=== PATIENT | female | born 1985 | race Caucasian/White ===

== ENCOUNTER 2016-12-29 23:40 | Emergency (ER) | payer OTHER ==
[2016-12-30 00:17] VITALS: BP 110/78; PULSE 75; TEMP 98.2; BMI 30.2
[2016-12-30] MEDS ORDERED: SODIUM CHLORIDE 1,000 ML IV STA (00:39)
[2016-12-30 01:18] LABS: BASOPHIL 0.6 % (0-2.0); EOSINOPHIL 1.6 % (0-4.5); MCH 28.2 pg (25.7-33.7); MCHC 32.7 g/dl (32.0-36.0); MEAN CELL VOLUME 86.2 fl (80-96); NEUTROPHILS 48.7 % (42.8-82.8); PLATELET COUNT 231 K/MM3 (134-434); RDW 12.1 % (11.6-15.6); WHITE BLOOD COUNT 7.4 K/mm3 (4.0-10.0)
[2016-12-30 01:27] LABS: URINE APPEARANCE CLEAR; URINE BILIRUBIN NEGATIVE (NEGATIVE); URINE BLOOD NEGATIVE (NEGATIVE); URINE COLOR LTYELLOW; URINE GLUCOSE (UA) NEGATIVE (NEGATIVE); URINE KETONE NEGATIVE (NEGATIVE); URINE NITRITE NEGATIVE (NEGATIVE); URINE PROTEIN NEGATIVE (NEGATIVE); URINE UROBILINOGEN NEGATIVE E.U./dl (0.2-1.0)
[2016-12-30 01:32] LABS: URINE LEUK ESTERASE TRACE (NEGATIVE)
[2016-12-30 01:44] LABS: ALBUMIN 3.6 g/dl (3.4-5.0); ANION GAP 10 (8-16); CALCIUM 8.9 mg/dL (8.5-10.1); CO2 25 mmol/L (21-32); GLUCOSE,RANDOM 86 mg/dL (74-106)
[2016-12-30 01:47] LABS: ALK PHOS 105 U/L (45-117); BILIRUBIN,TOTAL 0.4 mg/dL (0.2-1.0); CREATININE 0.5 mg/dL (0.55-1.02); SGOT/AST 17 U/L (15-37); SGPT/ALT 24 U/L (12-78); TOT PROT 6.6 g/dl (6.4-8.2)
[2016-12-30 01:50] LABS: URINE MUCUS RARE; URINE RBC 2 /hpf (0-3); URINE WBC 1 /hpf (3-5)
--- NOTE | 2016-12-30 02:08 | PDOC ---
History of Present Illness - General Chief Complaint: Pain Stated Complaint: PAIN, ACUTE Time Seen by Provider: 12/30/16 00:19 History Source: Patient, Family Exam Limitations: Language Barrier - History of Present Illness Travel History: No Initial Comments: 12/30/16 02:03 31yo Female patient presents to ED c/o abd pain x 5 days. Patient reports symptoms as sudden onset. She denies n/v/d, fever, dysuria, hematuria, no vaginal bleeding change in appetite, or any other complaints at this time. Timing/Duration: reports: constant Quality: reports: moderate Abdominal Pain Onset Location: reports: RLQ, LLQ Pain Radiation: reports: no radiation Activities at Onset: reports: none Treatment Prior to Arrive: worse with: analgesics, antacids, cold pack, heat, laxative, enema, other Aggravating Factors: worse with: None, Defecation, Eating, Emotional upset, Exertion, [place], Movement, Voiding, Change in position Past History - Travel Traveled outside of the country in the last 30 days: No Close contact w/someone who was outside of country & ill: No - Past Medical History Allergies/Adverse Reactions: Allergies Allergy/AdvReac Type Severity Reaction Status Date / Time No Known Allergies Allergy Verified 12/30/16 00:17 Home Medications: Ambulatory Orders Rifampin [Rifadin] 300 mg PO DAILY 04/03/16 Ranitidine HCl [Zantac] 300 mg PO DAILY #30 tablet 12/30/16 Other medical history: Denies - Immunization History Immunization Up to Date: No - Psycho/Social/Smoking Cessation Hx Anxiety: No Suicidal Ideation: No Smoking History: Never smoked Have you smoked in the past 12 months: No Number of Cigarettes Smoked Daily: 0 Information on smoking cessation initiated: No Hx Alcohol Use: No Drug/Substance Use Hx: No Substance Use Type: None Review of Systems - Review of Systems Able to Perform ROS?: Yes Is the patient limited Algerian proficient: No Constitutional: No: Chills, Fever Respiratory: No: Cough, Shortness of Breath, Stridor, Wheezing Cardiac (ROS): No: Chest Pain, Palpitations, Syncope, Chest Tightness ABD/GI: Yes: Abdominal cramping. No: Abdominal Distended, Blood Streaked Bowels , Constipated, Diarrhea, Nausea, Poor Appetite, Poor Fluid Intake, Rectal Bleeding, Vomiting : No: Burning, Dysuria, Discharge, Frequency, Flank Pain, Hematuria, Incontinence, Pain Musculoskeletal: No: Back Pain All Other Systems: Reviewed and Negative *Physical Exam - Vital Signs Last Vital Signs Temp Pulse Resp BP Pulse Ox 98.2 F 75 18 110/78 99 12/30/16 00:13 12/30/16 00:13 12/30/16 00:13 12/30/16 00:13 12/30/16 00:13 - Physical Exam General Appearance: Yes: Nourished, Appropriately Dressed. No: Apparent Distress, Mild Distress, Moderate Distress, Severe Distress Neck: positive: Trachea midline, Supple. negative: Lymphadenopathy (R), Lymphadenopathy (L) Respiratory/Chest: positive: Lungs Clear, Normal Breath Sounds. negative: Respiratory Distress, Accessory Muscle Use, Labored Respiration, Rapid RR, Crackles, Rales, Rhonchi, Stridor, Wheezing Cardiovascular: positive: Regular Rhythm, Regular Rate Gastrointestinal/Abdominal: positive: Normal Bowel Sounds, Tender, Soft, Distended, Tenderness (Lower abdomen). negative: Guarding, Rebound Musculoskeletal: positive: Normal Inspection. negative: CVA Tenderness Extremity: positive: Normal Capillary Refill, Normal Inspection, Normal Range of Motion. negative: Pedal Edema, Swelling, Calf Tenderness, Erythema, Inflammation Integumentary: positive: Normal Color, Dry, Warm Neurologic: positive: lot technician II-XII NML intact, Fully Oriented, Alert, Normal Mood/ Affect, Normal Response, Motor Strength 5/5 ED Treatment Course - LABORATORY CBC & Chemistry Diagram: 12/30/16 01:09 12/30/16 01:09 - ADDITIONAL ORDERS Additional order review: Laboratory Results 12/30/16 12/30/16 01:09 01:09 Sodium 139 Potassium 4.3 Chloride 104 Carbon Dioxide 25 Anion Gap 10 BUN 16 D Creatinine 0.5 L D Creat Clearance w eGFR > 60 Random Glucose 86 Calcium 8.9 Total Bilirubin 0.4 D AST 17 D ALT 24 Alkaline Phosphatase 105 Total Protein 6.6 Albumin 3.6 Urine Color Ltyellow Urine Appearance Clear Urine pH 6.0 Urine Protein Negative Urine Glucose (UA) Negative Urine Ketones Negative Urine Blood Negative Urine Nitrite Negative Urine Bilirubin Negative Urine Urobilinogen Negative Ur Leukocyte Esterase Trace H Urine RBC 2 Urine WBC 1 Ur Epithelial Cells Rare Urine Mucus Rare Urine HCG, Qual Negative 12/30/16 01:09 RBC 4.50 MCV 86.2 MCHC 32.7 RDW 12.1 MPV 8.0 Neutrophils % 48.7 Lymphocytes % 41.4 H Monocytes % 7.7 Eosinophils % 1.6 Basophils % 0.6 - Medications Given in the ED: ED Medications Discontinued Medications Generic Name Dose Route Start Last Admin Trade Name [place] PRN Reason Stop Dose Admin Sodium Chloride 1,000 mls @ 1,000 mls/hr 12/30/16 00:39 12/30/16 01:15 Normal Saline - IV 12/30/16 01:38 1,000 mls/hr ASDIR STA Administration *DC/Admit/Observation/Transfer Diagnosis at time of Disposition: Abdominal pain Qualifiers: Abdominal location: lower abdomen, unspecified Qualified Code(s): R10.30 - Lower abdominal pain, unspecified - Discharge Dispostion Disposition: HOME Condition at time of disposition: Improved Admit: No - Prescriptions Prescriptions: Ranitidine HCl [Zantac] 300 mg PO DAILY #30 tablet - Referrals Referrals: STAFF,NOT ON [Primary Care Provider] - Hugo Mike MD [Staff Physician] - - Patient Instructions Printed Discharge Instructions: DI for Abdominal Pain-Adult Additional Instructions: Seguir con el Dr. Mike (Gastroenterologa) para jimmy evaluacin ms detallada. Llame para programar jimmy teodora. [place] los medicamentos segn lo prescrito. Regresar si los sntomas empeoran o cualquier preocupacin por jimmy evaluacin posterior. Evite los alimentos picantes y la soda. Aumentar la fibra en la dieta. Follow up with Dr. Mike (Gastroenterology) for further evaluation. Call to schedule appointment. Take medications as prescribed. Return if symptoms worsen or any concern for further evaluation. Avoid spicy foods, and soda. Increase fiber in diet. Print Language: NAURUAN
--- NOTE | 2017-01-01 12:17 | PDOC ---
Patient Follow-up (Call Back) - Post ED Follow - Up Condition at time of discharge: Improved Disposition at time of original discharge: HOME Reason for Call Back: Abnwl. Microbiology (urine C & S + for >100,000 strep agalactiae [facility] left message for pt. to call back will treat with levaquin 250 mg daily for 3 days than to have repeat urine testing, left message for pt. to call me back at [phone])
--- NOTE | 2017-01-01 23:21 | PDOC ---
Patient Follow-up (Call Back) - Post ED Follow - Up Condition at time of discharge: Improved Disposition at time of original discharge: HOME Reason for Call Back: Abnwl. Microbiology (pt. did not call back due to urine C & S being + for strep alagactiae, group B had left message earlier today, will need treatment with levaquin 250 mg daily X 3 days. Will have pt. recalled tomorrow.)
--- NOTE | 2017-01-02 16:56 | PDOC ---
Patient Follow-up (Call Back) - Post ED Follow - Up Condition at time of discharge: Improved Disposition at time of original discharge: HOME Reason for Call Back: Abnwl. Microbiology (Group B strep in urine Spoke to pt, has no dysuria, hematuria, n/v/f/c Instructed to return for worsening of symptoms)
== END 2016-12-30 02:39 | disposition home or self-care (01) ==
LOC: JER 23:40
PROC: 3E0337Z Introduction of Electrolytic and Water Balance Substance into Peripheral Vein, Percutaneous Approach (ICD-10-PCS; principal; 2016-12-29)
DX: R10.30 Lower abdominal pain, unspecified (principal)
CPT/HCPCS: 36415; 80053; 81003; 81015; 84703; 85025; 87086; 87186; 99281-25